=== PATIENT | female | born 1955 | race Caucasian/White ===

== ENCOUNTER 2016-06-30 10:12 | Emergency (ER) | payer MEDICAID, OTHER ==
[~2016-06-30] VITALS: Ht 167.6 cm; Wt 63.5 kg
[2016-06-30 11:26] VITALS: BP 144/99
[2016-06-30] MEDS ORDERED: BACITRACIN TOP OINT 1 UD PKG TOP ONE (12:45)
== END 2016-06-30 12:55 | disposition home or self-care (01) ==
LOC: ER 10:15
DX: L03.012 Cellulitis of left finger (principal); M19.90 Unspecified osteoarthritis, unspecified site; F20.9 Schizophrenia, unspecified; F31.9 Bipolar disorder, unspecified; Z88.0 Allergy status to penicillin